=== PATIENT | male | born 2000 | race Caucasian/White ===

== ENCOUNTER 2023-01-22 10:07 | Inpatient (IN) | payer MEDICAID ==
[~2023-01-22] VITALS: Ht 190.5 cm; Wt 106.7 kg
[2023-01-22 10:30] VITALS: BP 119/74; PULSE 110; RESP 19; TEMP 98.3; O2SAT 95
[2023-01-22] MEDS ORDERED: PANTOPRAZOLE 40 MG/10 ML VIAL INJ IV ONE (10:30)
[2023-01-22] MEDS ORDERED: PROCHLORPERAZINE EDISYLATE 5 MG/ML 2ML VIAL IV ONE (10:30)
[2023-01-22] MEDS ORDERED: SODIUM CHLORIDE 0.9% 1,000 ML IVB ONE (10:30)
[2023-01-22] MEDS ORDERED: InsuLIN REG 1unit/0.01ml Soln (100units/ml) IV ONE (10:30)
[2023-01-22 10:50] LABS: Basophils # (auto) 0.1 10 ^3/uL (0-0.2); Basophils % (auto) 0.5 % (0.0-2.0); Eosinophils # (auto) 0 10 ^3/uL (0-0.8); Hematocrit 49.2 % (41.0-53.0); Hemoglobin 16.7 g/dL (13.5-17.5); Lymphocytes # (auto) 1.9 10 ^3/uL (0.4-5.4); Lymphocytes % (auto) 12.6 % (10.0-50.0); Mean Corpuscular Hemoglobin 27.9 pg (28.0-32.0); Mean Corpuscular Volume 82.1 fL (80.0-100.0); Monocytes # (auto) 1.1 10 ^3/uL (0-1.3); Monocytes % (auto) 7.4 % (0.0-12.0); Neutrophils # (auto) 11.7 10 ^3/uL (1.6-8.6); Neutrophils % (auto) 79.5 % (37.0-80.0); Nucleated Red Blood Cells % 0.1 %; Red Blood Cells 5.99 10^6/uL (4.5-5.90); Red Cell Distribution Width 13.9 % (11.8-14.3); White Blood Cell 14.7 10^3/uL (4.4-10.8)
[2023-01-22 11:09] LABS: Alanine Aminotransferase 36 U/L (7-40); Albumin 5.6 g/dL (3.2-4.8); Alkaline Phosphatase 67 U/L (46-116); Anion Gap 14 (5-15); Aspartate Aminotransferase 45 U/L (13-40); BUN/Creatinine Ratio 21.2 (10.0-20.0); Bilirubin, Total 1.1 mg/dL (0.2-1.0); Blood Urea Nitrogen 29 mg/dL (9-23); Calcium 10.7 mg/dL (8.5-10.1); Carbon Dioxide 24 mmol/L (20-30); Chloride 94 mmol/L (98-107); Potassium 4.4 mmol/L (3.5-5.1); Sodium 132 mmol/L (136-145); Total Protein 8.3 g/dL (5.7-8.2)
[2023-01-22 11:13] LABS: Glucose 422 mg/dL (74-106)
[2023-01-22 11:18] LABS: Base Excess 1.5 mmol/L (-2.0-2.0)
[2023-01-22 16:11] LABS: Lipase 44 U/L (12-53)
[2023-01-22] MEDS ORDERED: ONDANSETRON HCL 4 MG/2 ML VIAL IV PRN (16:45)
[2023-01-22] MEDS ORDERED: SODIUM CHLORIDE 0.9% 1,000 ML IV SCH (16:45)
[2023-01-22] MEDS ORDERED: ACETAMINOPHEN 500 MG TAB PO PRN (16:45)
[2023-01-22] MEDS ORDERED: NITROGLYCERIN 0.4 MG SL TAB SL PRN (16:45)
[2023-01-22] MEDS ORDERED: DEXTROSE (50%) 50ML SYRG IV PRN (16:45)
[2023-01-22] MEDS ORDERED: MORPHINE SULFATE INJ 2 MG/ml SYRG IV PRN (16:45)
[2023-01-22] MEDS ORDERED: KETOROLAC TROMETH 30 MG/ML 1ML VIAL IV PRN (16:45)
[2023-01-22] MEDS ORDERED: SODIUM CHLORIDE 0.9% 1,000 ML IV ONE (16:45)
[2023-01-22] MEDS ORDERED: glipiZIDE 5 MG TAB PO SCH (18:00)
[2023-01-22] MEDS ORDERED: metFORMIN HYDROCHLORIDE 850 MG TAB PO SCH (18:00)
[2023-01-22] MEDS ORDERED: ACCU-CHEK COMFORT CURVE STRIP VI SCH (20:00)
[2023-01-22] MEDS ORDERED: InsuLIN REG 1unit/0.01ml Soln (100units/ml) SC SCH (20:00)
[2023-01-22] MEDS ORDERED: PANTOPRAZOLE 40 MG/10 ML VIAL INJ IV SCH (22:00)
== END 2023-01-22 18:00 | disposition left against medical advice (07) | DRG 420 ==
LOC: ER 10:07 → OVERFLOW 16:47
PROVIDERS: ADMIT Hospitalist; ATTEND Hospitalist
DX: E11.65 Type 2 diabetes mellitus with hyperglycemia (principal); R53.1 Weakness; Z53.21 Procedure and treatment not carried out due to patient leaving prior to being seen by health care provider; Z87.891 Personal history of nicotine dependence
CPT/HCPCS: 36415; 36600; 74176; 80053; 82010; 82805; 82962; 83036; 83690; 85025; 96360; 96374; 96375; C9113; G0378; J1815